=== PATIENT | female | born 1940 | race Caucasian/White ===

== ENCOUNTER 2022-11-26 11:42 | Emergency (ER) | payer MEDICARE, BC ==
[2022-11-26] MEDS: diphenhydrAMINE 25 MG Cap PO ONE (11:49)
[2022-11-26 12:00] VITALS: PULSE 74
[2022-11-26 13:02] VITALS: BP 143/92
== END 2022-11-26 12:45 | disposition home or self-care (01) ==
LOC: LL.ED 11:42
DX: T63.441A Toxic effect of venom of bees, accidental (unintentional), initial encounter (principal); E78.00 Pure hypercholesterolemia, unspecified; I10 Essential (primary) hypertension; E11.9 Type 2 diabetes mellitus without complications; M19.90 Unspecified osteoarthritis, unspecified site; E66.9 Obesity, unspecified; Z68.32 Body mass index [BMI] 32.0-32.9, adult; Z79.84 Long term (current) use of oral hypoglycemic drugs; Z79.82 Long term (current) use of aspirin; Z79.899 Other long term (current) drug therapy
CPT/HCPCS: 99282; A9270; 99283